=== PATIENT | female | born 1950 | race Caucasian/White ===

== ENCOUNTER → 2017-10-27 | Outpatient (CLI) | payer MEDICARE ==
[~2017-10-27] MED LIST: ARTH650T6 PO; ASPI1TAB57 PO; CALC600T34 PO; CALCTAB19 PO; CHOL5000 PO; D3 U5000 PO; FAMO1TAB36 PO; FERR325T18 PO; FISH100020 PO; FISH1200 PO; IRONTAB5 PO; LORTA5 PO; META28.34 PO; MULT-65 PO; OMEP40CA2 PO; SUCR1TAB PO; TAB-TAB PO; TELM5TAB PO; TRAM50TA PO; VENL37.5 PO; ZOLO50TA PO
[2017-10-27 11:09] LABS: BILIRUBIN, URINE NEG (NEG); BLOOD, URINE NEG (NEG); GLUCOSE,URINE NEG (NEG); KETONE, URINE NEG (NEG); NITRITE,URINE NEG (NEG); SQUAMOUS EPITHELIAL CELL URINE <1 /hpf (0-5); URINE COLOR YELLOW (YELLW/STRAW); URINE LEUKOCYTE ESTERASE NEG (NEG)
[2017-10-27 11:10] LABS: PROTHROMBIN TIME - PATIENT 10.3 SEC (9.8-11.6)
[2017-10-27 11:15] LABS: HEMATOCRIT 39.9 % (35.0-46.0); HEMOGLOBIN 13.3 GM/DL (11.6-15.3); MEAN CELL VOLUME 91.9 FL (80.0-100.0); MEAN CORPUSCULAR HEMOGLOBIN 30.6 PG (27.0-34.0); MEAN CORPUSCULAR HGB CONC 33.4 % (32.0-36.0); MEAN PLATELET VOLUME 8.3 FL (7.0-11.0); PLATELET COUNT 325 TH/MM3 (150-450); RED BLOOD COUNT 4.34 MIL/MM3 (4.00-5.30); RED CELL DISTRIBUTION WIDTH 15.5 % (11.6-17.2)
[2017-10-27 11:32] LABS: ALBUMIN 3.6 GM/DL (3.4-5.0); AST (GOT) 19 U/L (15-37); BICARBONATE 24.6 MEQ/L (21.0-32.0); BLOOD UREA NITROGEN 22 MG/DL (7-18); CALCIUM 9.5 MG/DL (8.5-10.1); CHLORIDE 109 MEQ/L (98-107); CREATININE 0.63 MG/DL (0.50-1.00); GLOMERULAR FILTRATION RATE 95 ML/MIN (>89); GLUCOSE,FASTING 92 MG/DL (74-99); SODIUM (NA) 142 MEQ/L (136-145)
[2017-10-27 11:38] LABS: ALKALINE PHOSPHATASE 62 U/L (45-117); ALT (GPT) 30 U/L (10-53); TOTAL BILIRUBIN ADULT 0.7 MG/DL (0.2-1.0)
--- NOTE | 2017-10-27 14:39 | EKG ---
Date Performed: 10/27/2017 Time Performed: 09:48:50 PTAGE: 67 years EKG: Sinus rhythm NORMAL ECG PREVIOUS TRACING : 02/16/2013 09.51 DOCTOR: Froylan Palomares Interpretating Date/Time 10/27/2017 14:38:56
== END ==
LOC: CPRE 08:51
PROVIDERS: ATTEND Surgery
DX: Z01.812 Encounter for preprocedural laboratory examination (principal); Z01.810 Encounter for preprocedural cardiovascular examination; M79.609 Pain in unspecified limb
CPT/HCPCS: 36415; 80053; 81001; 85027; 85610; 85730; 93005

== ENCOUNTER → 2017-10-28 | Day surgery (SDC) | payer MEDICARE ==
--- NOTE | 2017-10-27 17:20 | MH ---
cc: Phuong Olsen MD DATE OF ADMISSION: 10/28/2017 ADMITTING DIAGNOSIS: Torn lateral meniscus and arthritis of right knee, now for arthroscopy of right knee. HISTORY OF PRESENT ILLNESS: This pleasant 67-year-old female is being admitted today for arthroscopic surgery, right knee, due to torn lateral meniscus. PAST MEDICAL HISTORY: The patient has a history of fibromyalgia. CURRENT MEDICATIONS: Boostrix, duloxetine, GaviLyte, ibuprofen was stopped before surgery, omeprazole, Savella, telmisartan, tramadol and venlafaxine. PAST SURGICAL HISTORY: Colon resection, hysterectomy. REVIEW OF SYSTEMS: Noncontributory. FAMILY HISTORY: Noncontributory. SOCIAL HISTORY: She does not smoke, but drinks alcohol occasionally. ALLERGIES: NO KNOWN ALLERGIES. PHYSICAL EXAMINATION: GENERAL: We find a 67-year-old female, well-developed, well-nourished, and oriented x 3, complaining of pain in her right knee. VITAL SIGNS: Blood pressure 120/68, pulse 70 and regular, respirations 16, temperature 98.4, pulse oximetry 98% on room air. HEENT: PERRLA, EOMI. Ears, nose, mouth clear. NECK: Supple. LUNGS: Clear. HEART: Regular rate. ABDOMEN: Soft, positive bowel sounds, nontender. EXTREMITIES: Reveal right and to be tender on the lateral joint surface. No evidence of effusion. She is neurovascularly intact to her toes. IMAGING STUDIES: MRI did reveal torn lateral meniscus and some arthritis. 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 IMPRESSION: Torn lateral meniscus, right knee. PLAN: Admission for arthroscopy of right knee today. The patient was given prescription for postoperative pain control in the office. Phuong Olsen MD JRCiro/KD , 04:56 PM , 05:18 PM
[~2017-10-28] VITALS: Ht 160 cm; Wt 72.1 kg
[~2017-10-28] MED LIST changes: +ACETAMINOPHEN 1000 MG/100 ML 100 ML IV ONE; +ACETAMINOPHEN/HYDROcodone 325 MG/5 MG TAB PO PRN; +BUPIVACAINE HCL PF 0.5% 30 ML VIAL ONE; -CALC600T34 PO; +CHLORHEXIDINE GLUCONATE 2 % 1 PACK (2 CLOTHS) TOPICAL PRN; +CHLORHEXIDINE GLUCONATE 4% SOLN 120 ML BTL TOPICAL SCH; -D3 U5000 PO; +DEXAMETHASONE SOD PHOS 4 MG/ML VIAL IV ONE; +DEXAMETHASONE SOD PHOS 4 MG/ML VIAL ONE; +DO NOT ADM ANY ANTICOAGULANT DRUGS PRN; -FAMO1TAB36 PO; +FAMOTIDINE 20 MG/2 ML VIAL ONE; -FISH1200 PO; +INSULIN HUMAN REGULAR 1,000 UNITS/10 ML VIAL SQ PRN; -IRONTAB5 PO; +LACTATED RINGER'S 1000 ML IV PRN; +LIDOCAINE HCL 1% PF 5 ML SYRINGE OTHER ONE; -LORTA5 PO; +MEPERIDINE HCL 50 MG/ML VIAL IM PRN; +MEPERIDINE HCL 50 MG/ML VIAL ONE; +METOPROLOL TARTRATE 25 MG TAB PO PRN; +MIDAZOLAM HCL 2 MG/2 ML VIAL ONE; +ONDANSETRON HCL 4 MG/2 ML VIAL IV ONE; +ONDANSETRON ODT 4 MG TAB PO PRN; +POVIDONE IODINE 5% (ANTISEPSIS KIT) 4 APPLICATIONS EACH NARE PRN; +PROPOFOL 200 MG/20 ML AMP IV ONE; +SODIUM CHLORID 0.9% 500 ML IV PRN; -TAB-TAB PO; -ZOLO50TA PO; +ceFAZolin 2 GM PREMIX 50 ML IV SCH; +ePHEDrine/NS 25 MG/5 ML SYRINGE IV ONE; +traMADol HCL 50 MG TAB ONE; +traMADol HCL 50 MG TAB PO PRN
--- NOTE | 2017-10-28 12:20 | HHI.PR ---
Immediate Post Op Note Procedure Date: Oct 28, 2017 Pre Op Diagnosis: Torn lateral meniscus and arthritis of right knee Post Op Diagnosis: Torn medial meniscus and arthritis of right knee Surgeon: Phuong Olsen Notch Grinder(s): Ashley DEJESUS Procedure: Arthroscopy of Right Knee Complications: none Specimen(s) removed: none Estimated blood loss: 5cc Anesthesia: General Drains: None IVF Urinary Output (mLs): 0 (no ureña) Tourniquet time (min at mmHg) none Patient to: SDS Patient Condition: Good Implant/Devices: SEE IMPLANT LOG (if applicable) Date/Time of Procedure: SEE SURGICAL CARE RECORD Ashley Clark Oct 28, 2017 12:20
[2017-10-28 13:58] VITALS: BP 103/63; PULSE 66; RESP 18; TEMP 98.1; O2SAT 96
--- NOTE | 2017-10-31 08:14 | MP ---
cc: Phuong Olsen MD DATE OF OPERATION: 10/28/2017 PREOPERATIVE DIAGNOSIS: Torn meniscus, left knee. POSTOPERATIVE DIAGNOSIS: Torn medial meniscus, left knee. SURGERY PERFORMED: Arthroscopy, excision of torn medial meniscus, left knee. SURGEON: Phuong Olsen MD CHEMIST PHARMACEUTICAL: ANJELICA Esparza ANESTHESIA: LMA. PROCEDURE: The patient was brought to the operating room and placed on the operating room table in the supine position. After successful induction of general anesthesia, the patient's ?? leg was prepped and draped in the usual manner. The knee was then placed in a knee landin and tightened. Arthroscopic examination was then performed by making a stab wound over the proximal superior and medial aspect of the patellofemoral joint for insertion of the inflow cannula and fluid, followed by stab wounds over the medial and lateral joint margins respectively for insertion of the arthroscope, shaver and probe. 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 The rest of the knee joint was found to be intact. The wound irrigated copiously with lactated Ringer's solution. Excess fluid removed. 4 mL of 0.25% Marcaine plain with 2 mL of Decadron inserted into the knee joint. Skin approximated with interrupted 4-0 nylon suture. Wet and then dry dressing applied to the wound followed by Xeroform gauze, sterile dressing and thigh high Jone wrap. No tourniquet utilized. ESTIMATED BLOOD LOSS: 5 mL. Sponge count correct. The patient tolerated the procedure well and left the operating room in satisfactory condition and ANJELICA Esparza, was present during the entire procedure to include patient positioning and the procedure. The medical necessity of the nurse practitioner as a captain assistant was indicated in this case due to the surgical complexity of the case itself. During the surgical case, the surgical lead was working the back table while my surgical training specialist ANJELICA was directly assisting me. MD RYAN Aceves/LAKISHA , 12:16 PM , 12:46 PM
== END | disposition home or self-care (01) ==
LOC: HSDC 07:23
PROVIDERS: ATTEND Surgery
DX: S83.242A Other tear of medial meniscus, current injury, left knee, initial encounter (principal)
CPT/HCPCS: 01400; 29881; E0113; J0131; J0690; J1100; J2175; J2250; J2405; J3010; J7120